=== PATIENT | female | born 1990 | race Two or more races ===

== ENCOUNTER 2025-02-24 11:28 | Emergency (ER) | payer MEDICAID, SELFPAY ==
[2025-02-24 11:45] VITALS: BP 129/85; PULSE 80; RESP 18; TEMP 37.6; O2SAT 96; BMI 36.8
--- NOTE | 2025-02-24 11:52 | XR_ITS ---
Examination: CT abdomen and pelvis without contrast. Coronal 3-D reconstructions. Sagittal 2-D reconstructions. Date and time of exam:February 24, 2025, 1559 hours INDICATIONS: Generalized abdominal pain beginning 5 days ago CTDI: vol (mGy): 9.77. DLP: (mGycm): 589. Technique: Axial images of the abdomen have been obtained, 3 mm slice thickness Intravenous contrast material has not been administered. Low dose protocols were performed. One or more of the following dose reduction techniques were used; automated exposure control, adjustment of the mA and/or KV according to patient size, use of iterative reconstruction technique. Findings: No liver or splenic lesions. Contracted gallbladder. No pancreatic or adrenal mass. No renal or ureteral calculi, no hydronephrosis. Normal appendix Aorta is not enlarged No bowel obstruction or diverticulitis. 14 mm fat-containing umbilical hernia Anteverted uterus Mild free fluid in the pelvis, mild inflammation about the left ovary Dilated lower uterine segment endometrium Contracted urinary bladder Osseous structures intact IMPRESSION: Normal appendix. 14 mm fat-containing umbilical hernia Dilated lower uterine segment endometrium with mild free fluid in the pelvis,, mild inflammation about the left ovary, recommend pelvic sonography follow-up
--- NOTE | 2025-02-24 11:52 | PD.EDABDPN ---
ED Abdominal Pain RME/HPI General Chief Complaint: Abdominal Pain Stated complaint: Abdominal pain X 1 week Time seen by provider: 02/24/25 11:31 Arrival date/time: 02/24/25 11:28 34-year-old female with no known medical history presents to the emergency room with a chief complaint of left lower quadrant abdominal pain that radiates to her left flank x 1 week Source: patient Mode of arrival: ambulatory Limitations: no limitations Related Data Previous Rx's ?Medication ?Instructions ?Recorded acetaminophen 500 mg capsule 1,000 mg (2 x 500 mg) PO Q8HR PRN 12/03/21 pain #60 caps ibuprofen 800 mg tablet 800 mg PO TID PRN pain #30 tabs 12/03/21 meloxicam 7.5 mg tablet 7.5 mg PO QDAY #10 tabs 02/24/25 Allergies Allergy/AdvReac Type Severity Reaction Status Date / Time No Known Allergies Allergy Verified 02/24/25 11:32 Review of Systems Review of Systems Systems Reviewed: All systems reviewed, normal except as documented Constitutional Constitutional: Reports system reviewed and no additional complaints, except as documented, Denies fatigue, Denies fever(s), Denies headache(s) and Denies weakness Eyes Eyes: Reports system reviewed and no additional complaints, except as documented, Denies blurry vision and Denies change in vision ENT Ears, Nose, Mouth, and Throat: Reports system reviewed and no additional complaints, except as documented, Denies otalgia, Denies headache(s), Denies nasal congestion, Denies throat swelling and Denies vertigo Cardiovascular Cardiovascular: Reports system reviewed and no additional complaints, except as documented, Denies chest pain, Denies dyspnea and Denies dyspnea on exertion Respiratory Respiratory: Reports system reviewed and no additional complaints, except as documented, Denies chest congestion, Denies cough, Denies dyspnea, Denies dyspnea on exertion and Denies wheezing Gastrointestinal Gastrointestinal: Reports system reviewed and no additional complaints, except as documented, Denies abdominal pain, Denies cramping, Denies nausea and Denies vomiting Genitourinary Genitourinary: Reports system reviewed and no additional complaints, except as documented Musculoskeletal Musculoskeletal: Reports system reviewed and no additional complaints, except as documented and Reports back pain Integumentary/Breasts Skin/Breast: Reports system reviewed and no additional complaints, except as documented and Denies wounds Neurologic Neurologic: Reports system reviewed and no additional complaints, except as documented, Denies confusion, Denies headache(s), Denies lack of coordination, Denies vertigo and Denies weakness Psychiatric Psychiatric: Reports system reviewed and no additional complaints, except as documented, Denies anxiety, Denies confusion, Denies depression, Denies paranoia, Denies suicidal ideation and Denies tactile hallucinations Endocrine Endocrine: Reports system reviewed and no additional complaints, except as documented and Denies fatigue Hematologic/Lymphatic Hematologic/Lymphatic: Reports system reviewed and no additional complaints, except as documented and Denies lymphadenopathy Allergic/Immunologic Allergic/Immunologic: Reports system reviewed and no additional complaints, except as documented, Denies throat swelling, Denies urticaria and Denies wheezing ED Exam General Limitations: Present no limitations General appearance: Present alert and in no apparent distress Head Head exam: Present atraumatic Eye Eye exam: Present normal appearance, PERRL and EOMI ENT ENT exam: Present normal exam, normal oropharynx and mucous membranes moist Neck Neck exam: Present normal inspection, full ROM and trachea midline Chest Chest inspection: Present normal inspection and symmetric chest wall rise Respiratory Respiratory exam: Present normal lung sounds bilaterally Cardiovascular Cardiovascular exam: Present regular rate, normal rhythm and normal heart sounds Abdominal Exam Abdominal exam: Present soft, tenderness and normal bowel sounds Abdominal tenderness: Present LLQ and mild Extremities Exam Extremities exam: Present normal inspection and full ROM Back Exam Back exam: Present normal inspection and full ROM Neurological Exam Neurological exam: Present alert, oriented X3 and CN II-XII intact Psychiatric Psychiatric exam: Present normal affect and normal mood Skin Skin exam: Present warm, dry, intact and normal color Course Quality Measures none Orders Category Date Time Status CT abdomen pelvis wo con Stat Exams 02/24/25 11:52 Completed US transvaginal Stat Exams 02/24/25 17:39 Completed CBC Stat Lab 02/24/25 13:07 Completed CMP [Comprehensive Metabolic Panel] Stat Lab 02/24/25 13:07 Completed HCG Qualitative,Urine Stat Lab 02/24/25 12:00 Completed Lipase Stat Lab 02/24/25 13:07 Completed UA [Urinalysis] Stat Lab 02/24/25 12:00 Completed Urine Culture Stat Lab 02/24/25 12:00 Received Vital Signs Vital signs: Vital Signs Temperature 99.6 F 02/24/25 11:45 Pulse Rate 80 02/24/25 11:45 Respiratory Rate 18 02/24/25 11:45 Blood Pressure 129/85 H 02/24/25 11:45 Pulse Oximetry (%) 96 02/24/25 11:45 Oxygen Delivery Method Room Air 02/24/25 11:45 Abdominal Pain MDM MDM Narrative MDM Narrative:: 34-year-old female with no known medical history presents to the emergency room with a chief complaint of left lower quadrant abdominal pain that radiates to her left flank x 1 week Patient is hemodynamically stable and in no apparent distress Physical examination shows tenderness and pain to the left lower quadrant as well as the left flank has been going on x 1 week. Patient denies any dysuria or hematuria CT of the abdomen and pelvis was completed and does not show any renal or ureteral calculi there is no hydronephrosis. There was an incidental finding of a 14 mm fat containing umbilical hernia as well as fluid in the free pelvis. I reevaluated the patient and she was still operator batch or continuous in the left lower quadrant. Dr Quinn the MEDICAL COLLECTIONS SPECIALIST on-call was consulted and recommendation was to order a transvaginal ultrasound to make sure her ovaries are good. A transvaginal ultrasound was then ordered. The patient was signed off to my colleague Vahe Maxwell NP who will assume care of the patient and follow-up with the results of the transvaginal ultrasound. Patient data External records reviewed:: [facility] previous records Clinical information provided by:: patient Social determinants that could affect healthcare access:: none Patient has the following chronic illnesses:: No chronic illness How is presenting disease/condition affected by chronic disease/condition?: no chronic disease Evaluation data The following diagnostics were reviewed and interpreted by me:: lab results and radiology exam(s) Lab and/or radiology exams considered but not ordered:: Labs and radiology exams considered in order Interpretation Summary: CT abdomen and pelvis-Findings: No liver or splenic lesions. Contracted gallbladder. No pancreatic or adrenal mass. No renal or ureteral calculi, no hydronephrosis. Normal appendix Aorta is not enlarged No bowel obstruction or diverticulitis. 14 mm fat-containing umbilical hernia Anteverted uterus Mild free fluid in the pelvis, mild inflammation about the left ovary Dilated lower uterine segment endometrium Contracted urinary bladder Osseous structures intact IMPRESSION: Normal appendix. 14 mm fat-containing umbilical hernia Dilated lower uterine segment endometrium with mild free fluid in the pelvis,, mild inflammation about the left ovary, recommend pelvic sonography follow-up Transvaginal ultrasound-FINDINGS: Uterus 9.0 cm, and endometrial stripe 1.1 cm Free fluid in the cervix, mild No uterine or cervical mass Right ovary obscured by bowel gas Left ovary 4.8 cm arterial flow no mass or inflammation noted,. There is mild fluid in the cul-de-sac IMPRESSION: Fluid in the cervical canal, clinical correlation is advised No discrete uterine mass, no intrauterine gestation No adnexal mass or adnexal inflammation noted on the study, no diagnostic visualization, however, of the right ovary. Medications / Prescriptions Medications or Prescriptions considered but not ordered:: No medication given Medication administrations:: No medication given Consultations Consultation(s) initiated? (list below): Yes Consultation #1 (Physician, Specialty, Details): Dr Quinn Time: 17:00 Diagnosis Differential diagnosis abdominal pain: abdominal pain, calculus of kidney, constipation, gastroenteritis and other (Urinary tract infection/kidney stone) Most likely diagnosis given after review of the tests above:: Abdominal pain Admission Indicated Admission indicated?: not indicated Admission Request Was there a request for admission?: No Disposition Plan Disposition Plan: Discharge Discharge Attestation Discharge Attestation: The patient and all family members were given an opportunity to ask questions and understood the discharge instructions. Discharge instructions specifically effects, indications for sooner follow up or return to the emergency department, and the expected course of current diagnosis. Patient condition: Stable Discharge Plan Plan Patient Disposition: HOME (Self Care) Patient condition on transfer: Stable Prescriptions/Referrals Prescriptions/Med Rec: New meloxicam 7.5 mg tablet 7.5 mg PO QDAY Qty: 10 0RF No Action ibuprofen 800 mg tablet 800 mg PO TID PRN (Reason: pain) Qty: 30 0RF acetaminophen 500 mg capsule 1,000 mg PO Q8HR PRN (Reason: pain) Qty: 60 0RF Referrals: [facility]Yamilka Schwartz MD [Physician] - In 1 week Ezra Ennis MD [Primary Care Provider] - In 1 week Problem List Clinical Impression: Abdominal pain Patient/Caregiver Discharge Instructions Education Materials: Abdominal Pain Print Language: Indian Stand Alone Forms: Alena Award Info., Work/School Release, Patient Portal Info Letter PA/JOMAR Supervising Physician PA/HOSPICE TEAM LEAD Supervising Physician: Vahe Maxwell ENP, MD Attestation MD Attestation The patient was seen by the midlevel practitioner. I, the co-signing physician, was present during the entire ER visit. While I did not physically examine the patient, I was available for consultation as needed. I agree with the plan and documentation.
[2025-02-24 12:14] LABS: Collection Type, Urine Clean Catch
[2025-02-24 12:22] LABS: HCG Qualitative,Urine Negative
[2025-02-24 12:33] LABS: Bilirubin,Urine Negative (Negative); Blood,Urine Negative (Negative); Clarity,Urine Turbid (Clear/Hazy); Color,Urine Yellow (Lt Yel-Yel); Glucose, Urine Negative (Negative); Hyaline Casts,Urine < 1 /hpf (0-1); Ketones,Urine Negative (Negative); Leukocyte Esterase,Urine Positive (Negative); Nitrite,Urine Negative (Negative); PH,Urine 6.0 (5.0-7.0); Protein,Urine Trace (Neg - Trace); RBC,Urine 6 /hpf (0-3); Specific Gravity,Urine 1.029 (1.001-1.035); Squamous Epithelial Cell,Urine 37 /hpf (0-5); Urobilinogen,Urine Negative mg/dL (0.0-1.0); WBC,Urine 85 /hpf (0-5)
[2025-02-24 13:15] LABS: Basophils # (Auto) 0.1 Thou/mm3 (0.0-0.2); Basophils % (Auto) 1 % (0-2.5); Eosinophils # (Auto) 0.4 Thou/mm3 (0.0-0.5); Eosinophils % (Auto) 3 % (0-10); Hematocrit 41.6 % (36.0-46.0); Hemoglobin 14.1 g/dL (12.0-16.0); Immature Granulocytes Auto 0.05 Thou/mm3 (0.00-0.00); Lymphocytes # (Auto) 2.9 Thou/mm3 (1.0-4.8); Lymphocytes % (Auto) 24 % (10-50); Mean Corpuscular HGB Conc 33.9 g/dl (31.0-37.0); Mean Corpuscular Hemoglobin 27.9 pg (25.0-35.0); Mean Corpuscular Volume 82 fL (80-100); Monocytes # (Auto) 0.8 Thou/mm3 (0.0-0.8); Monocytes % (Auto) 7 % (0-12); Neutrophils # (Auto) 7.7 Thou/mm3 (1.8-7.7); Neutrophils % (Auto) 65 % (37-80); Nucleated Red Blood Cell # 0.00 Thou/mm3 (0.00-0.00); Nucleated Red Blood Cell % 0 /100 WBC (0); Platelet Count 345 Thou/mm3 (140-440); RDW Standard Deviation 38.4 fL (36.4-46.3); Red Blood Count 5.06 Miln/mm3 (4.00-5.20); White Blood Count 12.0 Thou/mm3 (3.6-11.0)
[2025-02-24 13:36] LABS: Alanine Aminotransferase 17 U/L (10-49); Albumin, Serum 4.3 gm/dL (3.5-5.0); Albumin/Globulin Ratio 1.4 (1.2-2.2); Alkaline Phosphatase 82 U/L (46-116); Anion Gap 7 (7-16); Aspartate Amino Transferase 14 U/L (0-34); BUN/Creatinine Ratio 10 Ratio (12-20); Bilirubin,Total 0.3 mg/dL (0.3-1.2); Blood Urea Nitrogen 8 mg/dL (9-23); Calcium 9.1 mg/dL (8.3-10.6); Calcium (Corrected) 9.1 mg/dL (8.5-10.1); Carbon Dioxide 30.0 mMol/L (20.0-31.0); Chloride 105 mMol/L (98-107); Creatinine (Component) 0.8 mg/dL (0.6-1.3); Estimated Creatinine Clearance 106.2 mL/min (>60); Globulin 3.1 gm/dL (2.3-3.5); Glucose 94 mg/dL (74-106); Lipase 37 U/L (12-53); Osmolality,Calculated 281 (275-295); Potassium 4.0 mMol/L (3.4-5.1); Sodium 142 mMol/L (136-145); Total Protein 7.4 gm/dL (5.7-8.2); eGFR > 60 See Note
--- NOTE | 2025-02-24 17:39 | XR_ITS ---
Examination: Transvaginal ultrasound of the pelvis, complete Technique: Transvaginal sonographic images pelvis performed using young scale imaging Exam date and time: February 24, 2025, 1836 hours INDICATIONS: Abdominal pelvic pain today, dilated lower uterine endometrium with mild free fluid in the pelvis, inflammatory change about the left ovary on CT pelvis study today FINDINGS: Uterus 9.0 cm, and endometrial stripe 1.1 cm Free fluid in the cervix, mild No uterine or cervical mass Right ovary obscured by bowel gas Left ovary 4.8 cm arterial flow no mass or inflammation noted,. There is mild fluid in the cul-de-sac IMPRESSION: Fluid in the cervical canal, clinical correlation is advised No discrete uterine mass, no intrauterine gestation No adnexal mass or adnexal inflammation noted on the study, no diagnostic visualization, however, of the right ovary.
--- NOTE | 2025-02-24 20:08 | PD.EDADULT ---
ED General RME/HPI General Chief complaint: Abdominal Pain Stated complaint: Abdominal pain X 1 week Time Seen by Provider: 02/24/25 11:31 Source: patient Arrival date/time: 02/24/25 11:28 CC: Left flank pain without nausea vomiting painful urination HPI onset yesterday, no prior history of similar incident no other complaints no OTC medicines taken. Mode of arrival: ambulatory Limitations: no limitations Related Data Previous Rx's ?Medication ?Instructions ?Recorded acetaminophen 500 mg capsule 1,000 mg (2 x 500 mg) PO Q8HR PRN 12/03/21 pain #60 caps ibuprofen 800 mg tablet 800 mg PO TID PRN pain #30 tabs 12/03/21 meloxicam 7.5 mg tablet 7.5 mg PO QDAY #10 tabs 02/24/25 Allergies Allergy/AdvReac Type Severity Reaction Status Date / Time No Known Allergies Allergy Verified 02/24/25 11:32 Review of Systems Review of Systems Narrative Review of Systems: GEN: No fever, no chills, no weight loss EYES: No discharge, no visual changes, no pain HEENT: No ear pain, no congestion, no sore throat PULM: No shortness of breath, no cough, no congestion CV: No chest pain, no dyspnea on exertion, no palpitations GI: No nausea, no vomiting, no diarrhea, no pain, no constipation : No frequency, no urgency, no dysuria MUSC/SKEL: No joint pain, no back pain SKIN: No rash PSYCH: No hallucinations, no depression HEME/LYMPH: No easy bleeding or bruising tendencies NEURO: No weakness, no headache Past Medical History Social History SMOKING STATUS: Never smoker ED Exam Narrative Physical exam: [General: Obese not in any acute distress Head normocephalic HEENT: Within acceptable limits Neck is supple nontender Chest equal chest rise nontender to palpation Respiratory: Clear to auscultation no wheezes crackles or rubs CV: Rate rhythm is regular no murmurs rubs or clicks Abdomen is distended secondary to body habitus soft nontender no masses positive bowel sounds all 4 quadrants Back: No CVA tenderness no spinous process tenderness from cervical spine thoracic and lumbar spine Skin: Intact no petechiae rash induration ulceration or crepitus Extremities: Moving all extremity against resistance cap refill less than 2 seconds neurosensory intact Neuro: Awake alert oriented x3 Glascow coma 15 no focal deficits] General Limitations: Present no limitations General appearance: Present alert and in no apparent distress Course Quality Measures none Orders Category Date Time Status CT abdomen pelvis wo con Stat Exams 02/24/25 11:52 Completed US transvaginal Stat Exams 02/24/25 17:39 Completed CBC Stat Lab 02/24/25 13:07 Completed CMP [Comprehensive Metabolic Panel] Stat Lab 02/24/25 13:07 Completed HCG Qualitative,Urine Stat Lab 02/24/25 12:00 Completed Lipase Stat Lab 02/24/25 13:07 Completed UA [Urinalysis] Stat Lab 02/24/25 12:00 Completed Urine Culture Stat Lab 02/24/25 12:00 Received Vital Signs Vital signs: Vital Signs Temperature 99.6 F 02/24/25 11:45 Pulse Rate 80 02/24/25 11:45 Respiratory Rate 18 02/24/25 11:45 Blood Pressure 129/85 H 02/24/25 11:45 Pulse Oximetry (%) 96 02/24/25 11:45 Oxygen Delivery Method Room Air 02/24/25 11:45 Discharge Plan Plan Patient Disposition: HOME (Self Care) Patient condition on transfer: Stable Prescriptions/Referrals Prescriptions/Med Rec: New meloxicam 7.5 mg tablet 7.5 mg PO QDAY Qty: 10 0RF No Action ibuprofen 800 mg tablet 800 mg PO TID PRN (Reason: pain) Qty: 30 0RF acetaminophen 500 mg capsule 1,000 mg PO Q8HR PRN (Reason: pain) Qty: 60 0RF Referrals: Ezra Ennis MD [Primary Care Provider] - In 1 week [facility]),Yamilka Schwartz MD [Physician] - In 1 week Problem List Clinical Impression: Abdominal pain Patient/Caregiver Discharge Instructions Education Materials: Abdominal Pain Print Language: [place] Verdean Stand Alone Forms: Alena Award Info., Patient Portal Info Letter, Work/School Release PA/ENGINEERING SURVEYOR Supervising Physician PA/ENGINEERING SURVEYOR Supervising Physician: Vahe Maxwell ENP [facility] Clinical Information Provided by patient Medical Records Reviewed [facility] Meds/Rx Considered, not Ordered None Labs/Rad/Tests considered, not Ordered None Chronic Illness/Social Conditions which may negatively complicate care or outcome(s)-explain: None or not applicable EKG EKG not done Lab Interpretation Lab(s) interpretation(s): CBC shows mild leukocytosis of 12 no anemia thrombocytopenia CMP shows no acute electrolyte imbalances renal impairment transaminitis or T. bili elevation Urine is turbid WBCs at 85 epis at 37 RBCs at 6 leukocyte esterase positive no bacteria this is a contaminated specimen. Imaging Provider imaging interpretation(s): Transvaginal ReSound shows a small amount of fluid in the vaginal canal no other masses. Radiology reports / interpretation(s): Low event index of suspicion of anything acute we will discharge the patient home on meloxicam. Diagnosis Differential diagnosis: Abdominal pain Dispositon Disposition: Discharge Home
[2025-02-24 20:18] VITALS: BP 122/76; PULSE 70; RESP 16; TEMP 36; O2SAT 99
== END 2025-02-24 20:22 | disposition home or self-care (01) ==
PROVIDERS: Nurse Practitioner Family; Emergency Provider Family Medicine; PCP Family Medicine
DX: R10.32 Left lower quadrant pain (principal); K42.9 Umbilical hernia without obstruction or gangrene; D72.829 Elevated white blood cell count, unspecified; E66.9 Obesity, unspecified; Z68.36 Body mass index [BMI] 36.0-36.9, adult
CPT/HCPCS: 36415; 74176; 76830; 80053; 81001; 81025; 83690; 85025; 87077; 87086; 87186; 99284